=== PATIENT | female | born 2000 | race Hispanic/Latino ===

== ENCOUNTER 2021-02-01 18:29 | Emergency (ER) | payer SELFPAY ==
[~2021-02-01] VITALS: Ht 152.4 cm; Wt 56.7 kg
[2021-02-01] MEDS ORDERED: IBUPROFEN 600 MG TAB PO STA (18:44)
[2021-02-01] MEDS ORDERED: ACETAMINOPHEN 325 MG TAB PO NR (18:45)
== END 2021-02-01 20:57 | disposition home or self-care (01) ==
LOC: ER 18:44
DX: S63.501A Unspecified sprain of right wrist, initial encounter (principal); S60.221A Contusion of right hand, initial encounter; W01.0XXA Fall on same level from slipping, tripping and stumbling without subsequent striking against object, initial encounter; Y93.67 Activity, basketball; Y92.89 Other specified places as the place of occurrence of the external cause
CPT/HCPCS: 99283

== ENCOUNTER 2021-05-18 23:48 | Emergency (ER) | payer SELFPAY ==
[~2021-05-18] VITALS: Ht 154.9 cm; Wt 49.9 kg
[2021-05-19] MEDS ORDERED: KETOROLAC TROMETHAMINE 30 MG/ML VIAL IV STA (00:11)
[2021-05-19] MEDS ORDERED: ALPRAZOLAM 0.5 MG TAB PO STA (00:41)
[2021-05-19] MEDS ORDERED: ALPRAZOLAM 0.25 MG TAB ONE (00:54)
[2021-05-24] MEDS ORDERED: SILVER NITRATE SWABS ONE (07:13)
== END 2021-05-19 01:53 | disposition home or self-care (01) ==
LOC: FSED 05-19 00:10
DX: R07.9 Chest pain, unspecified (principal); R06.02 Shortness of breath; R20.0 Anesthesia of skin
CPT/HCPCS: 71046; 80053; 82553; 83880; 84484; 85025; 85379; 93005; 99284

== ENCOUNTER 2025-05-15 00:48 | Emergency (ER) | payer SELFPAY ==
[~2025-05-15] VITALS: Ht 154.9 cm; Wt 61.2 kg
[2025-05-15 01:04] LABS: CLARITY,URINE CLEAR (CLEAR); COLOR,URINE YELLOW (YELLOW); LEUKOCYTE ESTERASE ,URINE SMALL (NEGATIVE); PH,URINE 6 (5 - 7)
[2025-05-15 01:05] LABS: BILIRUBIN,URINE NEGATIVE (NEGATIVE); GLUCOSE, URINE NEGATIVE (NEGATIVE); KETONES,URINE NEGATIVE (NEGATIVE); NITRITE,URINE NEGATIVE (NEGATIVE); PROTEIN,URINE DIPSTICK NEGATIVE (NEGATIVE); URINE UROBILINOGEN 0.2 mg/dL (0.2 - 1)
[2025-05-15 01:20] LABS: PREGNANCY TEST, URINE NEGATIVE (NEGATIVE)
[2025-05-15 01:21] LABS: BACTERIA,URINE MANY /HPF; EPITHELIAL CELLS,URINE MODERATE /LPF; WBC,URINE (MAN) 21-50 /HPF (0-5)
[2025-05-15 01:22] LABS: YEAST,URINE MODERATE
[2025-05-15] MEDS ORDERED: CEFDINIR300 MG PO (01:23)
[2025-05-15] MEDS ORDERED: PYRIDIUM200 MG PO (01:23)
[2025-05-15 01:56] VITALS: PULSE 74; RESP 17; TEMP 98.4; O2SAT 99
== END 2025-05-15 02:08 | disposition home or self-care (01) ==
LOC: ER 00:54
DX: R30.0 Dysuria (principal); N39.0 Urinary tract infection, site not specified; M54.50 Low back pain, unspecified; J45.909 Unspecified asthma, uncomplicated; F17.210 Nicotine dependence, cigarettes, uncomplicated
CPT/HCPCS: 36415; 81001; 81025; 84702; 99283

== ENCOUNTER 2025-08-22 14:54 | Emergency (ER) | payer SELFPAY ==
[~2025-08-22] VITALS: Ht 154.9 cm; Wt 61.2 kg
[~2025-08-22 14:54] MED LIST: CEFDINIR300 MG PO; PYRIDIUM200 MG PO
[2025-08-22 16:58] VITALS: PULSE 73; RESP 18; TEMP 98.7
[2025-08-22 18:03] LABS: EPITHELIAL CELLS,URINE FEW /LPF; LEUKOCYTE ESTERASE ,URINE SMALL (NEGATIVE); PROTEIN,URINE DIPSTICK NEGATIVE (NEGATIVE); URINE UROBILINOGEN 1 mg/dL (0.2 - 1)
[2025-08-22 18:04] LABS: HYALINE CASTS 0-1 (0-1)
[2025-08-22 18:06] LABS: PREGNANCY TEST, URINE POSITIVE (NEGATIVE)
[2025-08-22] MEDS ORDERED: CEPHALEXIN500 MG PO (18:08)
[2025-08-22 19:20] VITALS: BP 119/84; PULSE 74; RESP 18; TEMP 98.3; O2SAT 98
== END 2025-08-22 18:25 | disposition home or self-care (01) ==
LOC: ER 17:04
DX: Z32.01 Encounter for pregnancy test, result positive (principal); R10.11 Right upper quadrant pain; J45.909 Unspecified asthma, uncomplicated
CPT/HCPCS: 81001; 81025; 99284

== ENCOUNTER 2025-09-16 13:12 | Emergency (ER) | payer MEDICARE ==
[~2025-09-16] VITALS: Ht 157.5 cm; Wt 61.2 kg
[~2025-09-16 13:12] MED LIST changes: +CEPHALEXIN500 MG PO
[2025-09-16 13:43] LABS: BASOPHILS % 0.2 % (0.0-1.0); EOSINOPHILS % 0.8 % (0.0-6.0); LYMPHOCYTES % 17.9 % (18.0-39.1); MONOCYTES % 6.9 % (4.4-11.3); NEUTROPHILS % 73.8 % (38.7-80.0); RED CELL DISTRIBUTION WIDTH 12.4 % (11.7-14.4)
[2025-09-16 13:53] LABS: LEUKOCYTE ESTERASE ,URINE TRACE (NEGATIVE); PROTEIN,URINE DIPSTICK NEGATIVE (NEGATIVE); URINE UROBILINOGEN 0.2 mg/dL (0.2 - 1)
[2025-09-16 14:00] LABS: EPITHELIAL CELLS,URINE MANY /LPF
[2025-09-16 14:07] LABS: EST GLOMERULAR FILTRATION RATE 124.0 ML/MIN (>=60)
[2025-09-16] MEDS ORDERED: CEPHALEXIN500 MG PO (15:13)
[2025-09-16 15:26] VITALS: PULSE 75; RESP 15; TEMP 98.2; O2SAT 100
== END 2025-09-16 15:24 | disposition home or self-care (01) ==
LOC: ER 13:16
DX: O26.891 Other specified pregnancy related conditions, first trimester (principal); R82.71 Bacteriuria; M54.50 Low back pain, unspecified; J45.909 Unspecified asthma, uncomplicated
CPT/HCPCS: 36415; 80053; 81001; 84702; 85025; 99284